=== PATIENT | female | born 1975 | race African-American/Black ===

== ENCOUNTER 2018-01-17 11:54 | Emergency (ER) | payer OTHER ==
[~2018-01-17] VITALS: Ht 157.5 cm; Wt 82.0 kg
[~2018-01-17 11:54] MED LIST: METO25 PO; PANT20 PO; ULTR50TA PO
[2018-01-17 11:59] VITALS: BP 130/79; PULSE 56; RESP 18; TEMP 99; O2SAT 98
[2018-01-17] MEDS ORDERED: TRIA37.53 PO (12:14)
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
[2018-01-17 13:31] LABS: AUTOMATED NEUTROPHIL # 3.2 TH/MM3 (1.8-7.7); BASOPHIL # 0.1 TH/MM3 (0-0.2); BASOPHIL % 1.1 % (0.0-2.0); EOSINOPHIL # 0.1 TH/MM3 (0-0.4); EOSINOPHIL % 1.8 % (0.0-4.0); HEMATOCRIT 33.4 % (35.0-46.0); HEMOGLOBIN 10.7 GM/DL (11.6-15.3); LYMPH % 32.6 % (9.0-44.0); LYMPHOCYTE # 1.8 TH/MM3 (1.0-4.8); MEAN CELL VOLUME 73.7 FL (80.0-100.0); MEAN CORPUSCULAR HEMOGLOBIN 23.6 PG (27.0-34.0); MEAN PLATELET VOLUME 8.6 FL (7.0-11.0); MONO % 7.2 % (0.0-8.0); MONOCYTE # 0.4 TH/MM3 (0-0.9); NEUT % 57.3 % (16.0-70.0); PLATELET COUNT 301 TH/MM3 (150-450); RED BLOOD COUNT 4.53 MIL/MM3 (4.00-5.30); RED CELL DISTRIBUTION WIDTH 16.2 % (11.6-17.2); WHITE BLOOD COUNT 5.5 TH/MM3 (4.0-11.0)
[2018-01-17 13:38] LABS: PROTHROMBIN TIME - PATIENT 10.5 SEC (9.8-11.6)
[2018-01-17 13:51] LABS: ALBUMIN 3.2 GM/DL (3.4-5.0); ALKALINE PHOSPHATASE 45 U/L (45-117); ALT (GPT) 14 U/L (10-53); BICARBONATE 22.7 MEQ/L (21.0-32.0); BLOOD UREA NITROGEN 9 MG/DL (7-18); CALCIUM 8.2 MG/DL (8.5-10.1); CHLORIDE 107 MEQ/L (98-107); CREATININE 0.64 MG/DL (0.50-1.00); GLOMERULAR FILTRATION RATE 124 ML/MIN (>89); GLUCOSE,RANDOM 69 MG/DL (74-106); SODIUM (NA) 140 MEQ/L (136-145); TOTAL BILIRUBIN ADULT 0.4 MG/DL (0.2-1.0); TROPONIN I LESS THAN 0.02 NG/ML (0.02-0.05)
[2018-01-17 13:52] LABS: AST (GOT) 20 U/L (15-37)
--- NOTE | 2018-01-17 14:26 | RADRPT ---
EXAM DATE: 01/17/2018 2:17 PM EDT AGE/SEX: 42 years / Female INDICATIONS: Shortness of breath and chest pain. CLINICAL DATA: This is the patient's initial encounter. Patient reports that signs and symptoms have been present for 1 day and indicates a pain score of 7/10. MEDICAL/SURGICAL HISTORY: Hypertension. None. COMPARISON: [facility] – [place], CHEST SINGLE AP, 07/07/2012. . FINDINGS: A single AP view of the chest demonstrates the lungs to be symmetrically aerated without evidence of mass, infiltrate or effusion. The cardiomediastinal contours are unremarkable. Osseous structures a re intact. CONCLUSION: Negative examination. Electronically signed by: Jeronimo Barrera MD 01/17/2018 2:25 PM EDT
--- NOTE | 2018-01-17 15:39 | EKG ---
Date Performed: 01/17/2018 Time Performed: 12:10:04 PTAGE: 42 years EKG: Sinus rhythm NORMAL ECG PREVIOUS TRACING : 01/17/2018 12.09 Compared to previous tracing, heart rate has slowed. DOCTOR: Chauncey Hoang Interpretating Date/Time 01/17/2018 15:37:34
== END 2018-01-17 14:40 | disposition left against medical advice (07) ==
LOC: NEPC 11:54
DX: R07.9 Chest pain, unspecified (principal); R53.1 Weakness; R42 Dizziness and giddiness; I10 Essential (primary) hypertension; Z88.0 Allergy status to penicillin; Z88.5 Allergy status to narcotic agent; Z88.8 Allergy status to other drugs, medicaments and biological substances
CPT/HCPCS: 71045; 80053; 82550; 84484; 85025; 85610; 85730; 93005